=== PATIENT | female | born 1960 | race Caucasian/White ===

== ENCOUNTER 2017-04-14 21:37 | Observation (INO) | payer MEDICARE ==
[~2017-04-14] VITALS: Ht 152.4 cm; Wt 50.0 kg
[2017-04-14 21:39] VITALS: BP 112/64; PULSE 88; RESP 16; TEMP 98.4; O2SAT 100
[2017-04-14] MEDS ORDERED: LAMI200T PO (22:34)
[2017-04-14] MEDS ORDERED: ADDE20 PO (22:34)
[2017-04-14] MEDS ORDERED: LIPI20TA PO (22:34)
[2017-04-14] MEDS ORDERED: PROZ40CA PO (22:34)
[2017-04-14] MEDS ORDERED: DIAZ2TAB PO (22:34)
--- NOTE | 2017-04-14 22:35 | PD ---
HPI Chief Complaint: Medical Clearance Time Seen by Provider: 22:30 Travel History International Travel<30 days: No Contact w/Intl Traveler<30days: No Traveled to known affect area: No History of Present Illness HPI The patient is a 57 year old female who presents to the [facility] emergency department with a history of intermittently passing out for the past week. She reports that she has noticed that she was passing out because she would be texting someone and then suddenly come to realize that she was texting a grouping of letters that made no sense. The patient is reportedly from [facility]. The patient has a, located medical history including reportedly being diagnosed with a brain tumor that was biopsied positive for glioma and inoperable due to the location, history of leukemia, B-cell lymphoma , cervical cancer, chronic back pain, and a right ovarian cyst. The patient additionally reports that she had a stroke in 2008 that has caused cognitive dysfunction. She denies having any residual weakness of her extremities. The patient reports that she traveled from [facility] last night to [place]. She reports that she was trying to drive back today. She decided to come to the emergency department in [facility] when she was having difficulty driving and weaving in and out of her proper ida of traffic. The patient reports that she has not slept for more than 2 hours in the last 48 hours. Otherwise on review of systems, the patient denies having any recent fevers, cough or congestion, new or worsening neck pain, chest pain, shortness of breath , vomiting, diarrhea, urinary symptoms, or other neurologic symptoms. 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 Anxiety: Yes High Cholesterol: Yes Cerebrovascular Accident: Yes Headaches: Yes Hypertension: Yes Ulcer: Yes Past Surgical History Narrative Surgical The patient's past surgical history is significant for brain biopsy, coloposcopy , breast enhancement, bilateral wrist surgery, and a tonsillectomy. Tonsillectomy: Yes Social History Alcohol Use: Yes (rare.) Tobacco Use: Yes (rare occasional) Substance Use: No Allergies-Medications (Allergen,Severity, Reaction): Coded Allergies: No Known Allergies (Unverified , 04/14/17) Reported Meds & Prescriptions Reported Meds & Active Scripts Active Reported Aspirin 81 Mg Chew 81 Mg CHEW DAILY Lamictal (Lamotrigine) 200 Mg Tab 200 Mg PO DAILYHS Lipitor (Atorvastatin Calcium) 20 Mg Tab 20 Mg PO HS Diazepam 2 Mg Tab 2 Mg PO BID PRN Adderall (Amphetamine-Dextroamphetamine) 20 Mg Tab 20 Mg PO BID Avoid late evening doses. Space doses at least 4 to 6 hours if more than once/day dosing. Prozac (Fluoxetine HCl) 40 Mg Cap 40 Mg PO DAILY Review of Systems Except as stated in HPI: all other systems reviewed are Neg General / Constitutional: No: Fever Eyes: No: Visual changes HENT: Positive: Headaches, No: Neck Stiffness, Neck Pain Cardiovascular: Positive: Syncope, No: Chest Pain or Discomfort Respiratory: No: Shortness of Breath Gastrointestinal: Positive: Abdominal Pain (chronic reportedly related to a an ovarian cyst), No: Nausea, Vomiting, Diarrhea Genitourinary: No: Dysuria Musculoskeletal: No: Pain Skin: No Rash Neurologic: Positive: Syncope, Change in Mentation (increased difficulty focusing), No: Weakness, Focal Abnormalities, Slurred Speech, Sensory Disturbance Psychiatric: No: Depression Endocrine: No: Polydipsia Hematologic/Lymphatic: No: Easy Bruising Physical Exam Narrative General: The patient is a well-developed well-nourished female in no acute distress. Head and Neck exam: Head is normocephalic atraumatic. Eyes: EOMI, pupils are equal round and reactive to light. Nose: Midline septum with pink mucous membranes Mouth: Dentition unremarkable. Moist mucus membranes. Posterior oropharynx is not erythematous. No tonsillar hypertrophy. Uvula midline. Airway patent. Neck: No palpable lymphadenopathy. No nuchal rigidity. No thyromegaly. Cardiovascular: Regular rate and rhythm without murmurs, gallops, or rubs. Lungs: Clear to auscultation bilaterally. No wheezes, rhonchi, or rales. Abdomen: Soft, without tenderness to palpation in all 4 quadrants of the abdomen. No guarding, rebound, or rigidity. Normal bowel sounds are audible. No tenderness on palpation of McBurney's point. Negative Deleon's sign. Extremities: No clubbing, cyanosis, or edema. 2+ pulses in all 4 extremities. No calf tenderness on palpation. Back: No spinous process tenderness to palpation. No costovertebral angle tenderness to palpation. Neurologic Exam: Grossly nonfocal. Skin Exam: No rash noted. Intact skin that is warm and dry. Data Data Last Documented VS Vital Signs Date Time Temp Pulse Resp B/P (MAP) Pulse Ox O2 Delivery O2 Flow Rate FiO2 04/14/17 22:40 100 Room Air 04/14/17 22:40 82 20 87 20 87 20 04/14/17 21:39 98.4 Orders Orders Electrocardiogram (04/14/17 22:35) Complete Blood Count With Diff (04/14/17 22:35) Comprehensive Metabolic Panel (04/14/17 22:35) Creatine Kinase (Cpk) (04/14/17 22:35) Ckmb (Isoenzyme) Profile (04/14/17 22:35) Troponin I (04/14/17 22:35) B-Type Natriuretic Peptide (04/14/17 22:35) Prothrombin Time / Inr (Pt) (04/14/17 22:35) Act Partial Throm Time (Ptt) (04/14/17 22:35) Lipase (04/14/17 22:35) Urinalysis - C+S If Indicated (04/14/17 22:35) D-Dimer (04/14/17 22:35) Magnesium (Mg) (04/14/17 22:35) Thyroid Stimulating Hormone (04/14/17 22:35) Chest, Single Ap (04/14/17 22:35) Ct Brain W/O Iv Contrast(Rout) (04/14/17 22:35) Iv Access Insert/Monitor (04/14/17 22:35) Ecg Monitoring (04/14/17 22:35) Oximetry (04/14/17 22:35) Orthostatic Vital Signs (04/14/17 22:35) Sodium Chlorid 0.9% 500 Ml Inj (Ns 500 M (04/14/17 22:45) Drug Screen, Random Urine (04/14/17 22:54) Alcohol (Ethanol) (04/14/17 22:52) CKMB (04/14/17 22:52) CKMB% (04/14/17 22:52) Ct Pulmonary Angiogram (04/14/17 23:47) Admit Order (Ed Use Only) (04/15/17 00:55) Labs Laboratory Tests Test 04/14/17 22:52 04/14/17 22:53 White Blood Count 5.1 TH/MM3 Red Blood Count 4.27 MIL/MM3 Hemoglobin 13.4 GM/DL Hematocrit 39.1 % Mean Corpuscular Volume 91.5 FL Mean Corpuscular Hemoglobin 31.3 PG Mean Corpuscular Hemoglobin Concent 34.2 % Red Cell Distribution Width 12.2 % Platelet Count 176 TH/MM3 Mean Platelet Volume 7.5 FL Neutrophils (%) (Auto) 56.0 % Lymphocytes (%) (Auto) 23.8 % Monocytes (%) (Auto) 8.4 % Eosinophils (%) (Auto) 11.0 % Basophils (%) (Auto) 0.8 % Neutrophils # (Auto) 2.8 TH/MM3 Lymphocytes # (Auto) 1.2 TH/MM3 Monocytes # (Auto) 0.4 TH/MM3 Eosinophils # (Auto) 0.6 TH/MM3 Basophils # (Auto) 0.0 TH/MM3 CBC Comment DIFF FINAL Differential Comment Prothrombin Time 12.0 SEC Prothromb Time International Ratio 1.1 RATIO Activated Partial Thromboplast Time 27.3 SEC D-Dimer Quantitative (PE/DVT) 0.20 MG/L FEU Blood Urea Nitrogen 10 MG/DL Creatinine 0.67 MG/DL Random Glucose 95 MG/DL Total Protein 6.7 GM/DL Albumin 3.9 GM/DL Calcium Level 8.6 MG/DL Magnesium Level 2.2 MG/DL Alkaline Phosphatase 119 U/L Aspartate Amino Transf (AST/SGOT) 26 U/L Alanine Aminotransferase (ALT/SGPT) 31 U/L Total Bilirubin 0.3 MG/DL Sodium Level 141 MEQ/L Potassium Level 3.6 MEQ/L Chloride Level 104 MEQ/L Carbon Dioxide Level 30.1 MEQ/L Anion Gap 7 MEQ/L Estimat Glomerular Filtration Rate 90 ML/MIN Total Creatine Kinase 187 U/L Creatine Kinase MB 7.9 NG/ML Troponin I LESS THAN 0.02 NG/ML B-Type Natriuretic Peptide 8 PG/ML Lipase 115 U/L Thyroid Stimulating Hormone 3rd Gen 0.825 uIU/ML Ethyl Alcohol Level LESS THAN 3 MG/DL Urine Color YELLOW Urine Turbidity CLEAR Urine pH 7.5 Urine Specific [place] 1.022 Urine Protein TRACE mg/dL Urine Glucose (UA) NEG mg/dL Urine Ketones NEG mg/dL Urine Occult Blood NEG Urine Nitrite NEG Urine Bilirubin NEG Urine Urobilinogen 2.0 MG/DL Urine Leukocyte Esterase SMALL Urine RBC 6 /hpf Urine WBC 3 /hpf Urine Squamous Epithelial Cells <1 /hpf Urine Mucus FEW /lpf Microscopic Urinalysis Comment CULT NOT INDICATED Urine Opiates Screen NEG Urine Barbiturates Screen NEG Urine Amphetamines Screen POS Urine Benzodiazepines Screen POS Urine Cocaine Screen POS Urine Cannabinoids Screen NEG MDM Medical Decision Making Medical Screen Exam Complete: Yes Emergency Medical Condition: Yes Medical Record Reviewed: Yes Interpretation(s) Last Impressions Head CT 04/14/172234 Signed Impressions: Service Date/Time: Friday, April 14, 2017 23:17 - CONCLUSION: 1. No evidence of acute intracranial pathology. No masses are identified. 2. 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 There is no evidence of pneumonia. 2. Possible left upper lobe nodule. CT scan is recommended for further evaluation if clinically indicated. Miki Camacho MD Differential Diagnosis Progression of intracranial tumor, versus ischemic stroke, versus hemorrhagic stroke, versus increased difficulty focusing related to lack of sleep, versus cardiac arrhythmia, versus dehydration, versus electrolyte arrangements Narrative Course During the course of the patients emergency department visit, the patients history, examination, and differential diagnosis were reviewed with the patient. The patient was placed on a gambling monitor with oximetry and frequent blood pressure monitoring. The patient had IV access obtained and blood work sent for analysis. The patient had an ECG done on arrival. The patient's ECG shows a sinus rhythm heart rate of 69, QRS duration is 97 ms, QTC 436 ms, no acute ST segment elevation or depression, T waves are inverted in V1. The patient's records from [place] will be obtained due to her complicated medical history. The patient reports that she normally goes to [facility] for her healthcare. The patient was initially provided normal saline a 500 mL bolus 1. The patients laboratory studies were reviewed and remarkable for a white count of 5.1, hemoglobin 13.4, platelets 176 with 8.4 monocytes, eosinophils 11, CMP is remarkable for an alkaline phosphatase of 119, CPK 187, troponin I less than 0.02, BNP 8, lipase 115, TSH 0.825, PT 12, PTT 27.3, alcohol level less than 3. Urine drug screen is positive for benzodiazepine, amphetamines, cocaine. Urinalysis shows small leukocyte esterase, 6 RBCs otherwise unremarkable. Radiology studies were reviewed and remarkable for a chest x-ray that shows no evidence of pneumonia, possible left upper lobe nodule, CT scan recommended for further evaluation, CT scan of the brain shows no evidence of acute intracranial pathology. No masses are identified. 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 CTA to rule out pulmonary embolism shows no evidence of pulmonary embolism. The patient will be admitted to the hospital for syncope. The patients results were discussed with the patient, including the plan of care. I explained that further testing and/ or monitoring is indicated based on the patients history, examination, and/ or laboratory findings. Therefore, I recommended admission for additional evaluation. The patient expressed understanding and was agreeable with this plan. The patient was admitted to the hospital in stable condition and sent to a bed under the care of the [facility] service. Physician Communication Physician Communication The patient's case including history, pertinent physical examination findings, and laboratory studies were discussed with Dr. Arciniega. It was agreed that the patient would be admitted to the [facility] service. Diagnosis Primary Impression: Syncope Qualified Codes: R55 - Syncope and collapse Admitting Information Admitting Physician Requests: Annie Mckenzie MD Apr 14, 2017 22:35
[2017-04-14 22:40] VITALS: BP_SYST 106; BP_SYST 113; BP_SYST 114; BP_DIAS 53; BP_DIAS 58; BP_DIAS 65; RESP 20; O2SAT 100
[2017-04-14] MEDS ORDERED: SODIUM CHLORID 0.9% 500 ML INJ 500 ML IV ONE (22:45)
[2017-04-14 23:12] LABS: AUTOMATED NEUTROPHIL # 2.8 TH/MM3 (1.8-7.7); BASOPHIL % 0.8 % (0.0-2.0); EOSINOPHIL # 0.6 TH/MM3 (0-0.4); HEMATOCRIT 39.1 % (35.0-46.0); HEMO FLAGS DIFF FINAL; LYMPH % 23.8 % (9.0-44.0); LYMPHOCYTE # 1.2 TH/MM3 (1.0-4.8); MEAN CELL VOLUME 91.5 FL (80.0-100.0); MEAN CORPUSCULAR HEMOGLOBIN 31.3 PG (27.0-34.0); MEAN CORPUSCULAR HGB CONC 34.2 % (32.0-36.0); MONO % 8.4 % (0.0-8.0); PLATELET COUNT 176 TH/MM3 (150-450); RED BLOOD COUNT 4.27 MIL/MM3 (4.00-5.30); RED CELL DISTRIBUTION WIDTH 12.2 % (11.6-17.2); WHITE BLOOD COUNT 5.1 TH/MM3 (4.0-11.0)
[2017-04-14 23:18] LABS: BLOOD, URINE NEG (NEG); COMMENT (UR) CULT NOT INDICATED; CULTURE IF INDICATED CULT NOT INDICATED; GLUCOSE,URINE NEG (NEG); KETONE, URINE NEG (NEG); MUCUS URINE FEW /lpf (OCC); NITRITE,URINE NEG (NEG); PH, URINE 7.5 (5.0-8.5); SQUAMOUS EPITHELIAL CELL URINE <1 /hpf (0-5); URINE COLOR YELLOW (YELLW/STRAW)
[2017-04-14] MEDS ORDERED: ASPI-516 CHEW (23:18)
--- NOTE | 2017-04-14 23:25 | RADRPT ---
EXAM DATE/TIME: 04/14/2017 23:01 [facility] COMPARISON: No previous studies available for comparison. INDICATIONS : Chest pain, short of breath. MEDICAL HISTORY : None. SURGICAL HISTORY : None. ENCOUNTER: Initial ACUITY: 1 day PAIN SCORE: 0/10 LOCATION: Bilateral chest FINDINGS: The cardiac silhouette is normal in transverse diameter. There is no evidence of pneumonia. The aort ic knob is prominent with tortuosity of the descending thoracic aorta. There is a possible 10 mm nodu le in the left upper lobe. CT scan is recommended for further evaluation if clinically indicated. CONCLUSION: 1. There is no evidence of pneumonia. 2. Possible left upper lobe nodule. CT scan is recommended for further evaluation if clinically indic ated. Miki Camacho MD on April 14, 2017 at 23:23 Board Certified Radiologist. This report was verified electronically.
[2017-04-14 23:27] LABS: APTT (PATIENT) 27.3 SEC (24.3-30.1); INTERNATIONAL NORMALIZED RATIO 1.1 RATIO
[2017-04-14 23:33] LABS: ALT (GPT) 31 U/L (10-53); ANION GAP 7 MEQ/L (5-15); AST (GOT) 26 U/L (15-37); BICARBONATE 30.1 MEQ/L (21.0-32.0); BLOOD UREA NITROGEN 10 MG/DL (7-18); CHLORIDE 104 MEQ/L (98-107); GLOMERULAR FILTRATION RATE 90 ML/MIN (>89); MAGNESIUM 2.2 MG/DL (1.5-2.5); POTASSIUM 3.6 MEQ/L (3.5-5.1); SODIUM (NA) 141 MEQ/L (136-145)
[2017-04-14 23:35] LABS: ALCOHOL LESS THAN 3 MG/DL (0-5)
[2017-04-14 23:41] LABS: ALKALINE PHOSPHATASE 119 U/L (45-117); CREATINE KINASE 187 U/L (26-192); TOTAL BILIRUBIN ADULT 0.3 MG/DL (0.2-1.0)
[2017-04-14 23:54] LABS: CKMB 7.9 NG/ML (0.5-3.6)
--- NOTE | 2017-04-14 23:58 | RADRPT ---
EXAM DATE/TIME: 04/14/2017 23:17 [facility] COMPARISON: No previous studies available for comparison. INDICATIONS : Frontal headache. Syncope. RADIATION DOSE: 26.67 CTDIvol (mGy) MEDICAL HISTORY : Stroke. Lymphoma. Temporal lobe tumor. Cervical cancer. SURGICAL HISTORY : Temporal lobe biopsy. ENCOUNTER: Initial ACUITY: 1 day PAIN SCALE: 7/10 LOCATION: cranial TECHNIQUE: Multiple contiguous axial images were obtained of the head. Using automated exposure control and adj ustment of the mA and/or kV according to patient size, radiation dose was kept as low as reasonably a chievable to obtain optimal diagnostic quality images. DICOM format image data is available electro nically for review and comparison. FINDINGS: CEREBRUM: The ventricles are normal for age. No evidence of midline shift, mass lesion, hemorrhage or acute in farction. No extra-axial fluid collections are seen. POSTERIOR FOSSA: The cerebellum and brainstem are intact. The 4th ventricle is midline. The cerebellopontine angle i s unremarkable. Old right PICA is present EXTRACRANIAL: The visualized portion of the orbits is intact. SKULL: The calvaria is intact. No evidence of skull fracture. There is previous left temporal craniotomy CONCLUSION: 1. No evidence of acute intracranial pathology. No masses are identified. 2. 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 This report was verified electronically.
[2017-04-15] VITALS (8 sets, daily range): BP systolic 93–120; BP diastolic 56–63; PULSE 62–96; RESP 16–19; TEMP 97.4–98.9; O2SAT 98–99
[2017-04-15] MEDS ORDERED: NALOXONE HCL 0.4 MG/ML AMP IV PUSH PRN ×2 (01:30→14:00)
[2017-04-15] MEDS ORDERED: SODIUM CHLORIDE 0.9% FLUSH 10 ML FLUSH IV FLUSH PRN (01:30)
[2017-04-15] MEDS ORDERED: IOHEXOL 350 MG/ML 10 ML VIAL (for RAD DIAG) IVCONTRAST ONE (01:44)
--- NOTE | 2017-04-15 01:59 | RADRPT ---
EXAM DATE/TIME: 04/15/2017 00:37 [facility] COMPARISON: No previous studies available for comparison. INDICATIONS : Syncopal episodes past week. IV CONTRAST: 60 cc Omnipaque 350 (iohexol) IV RADIATION DOSE: 21.13 CTDIvol (mGy) MEDICAL HISTORY : Cerebrovascular disease. Hypertension. SURGICAL HISTORY : None. ENCOUNTER: Initial ACUITY: 1 week PAIN SCALE: 0/10 LOCATION: chest TECHNIQUE: Volumetric scanning of the chest was performed using a pulmonary embolism protocol MIP images were re constructed. Using automated exposure control and adjustment of the mA and/or kV according to patien t size, radiation dose was kept as low as reasonably achievable to obtain optimal diagnostic quality images. DICOM format image data is available electronically for review and comparison. Follow-up recommendations for detected pulmonary nodules are based at a minimum on nodule size and pa tient risk factors according to Fleischner Society Guidelines. FINDINGS: PULMONARY ARTERIES: No filling defects are seen in the pulmonary arteries through the segmental level. LUNGS: There is no consolidation or pneumothorax . No concerning pulmonary nodule is visualized. PLEURAE: There is no pleural thickening or pleural effusion. MEDIASTINUM: There is good visualization of the great vessels of the middle mediastinum. No evidence of mediastin al or hilar adenopathy/mass. MUSCULOSKELETAL: Within normal limits for patient age. MISCELLANEOUS: The visualized upper abdominal organs demonstrate no acute abnormality. CONCLUSION: 1. No evidence of pulmonary embolism. Miki Camacho MD on April 15, 2017 at 1:55 Board Certified Radiologist. This report was verified electronically.
[2017-04-15 05:29] LABS: CREATINE KINASE 167 U/L (26-192)
[2017-04-15] MEDS ORDERED: SODIUM CHLORIDE 0.9% FLUSH 10 ML FLUSH IV FLUSH SCH (09:00)
--- NOTE | 2017-04-15 09:30 | EKG ---
Date Performed: 04/15/2017 Time Performed: 04:46:20 PTAGE: 57 years EKG: Sinus rhythm NORMAL ECG NO PREVIOUS TRACING DOCTOR: Fred Ireland Interpretating Date/Time 04/15/2017 09:29:56
--- NOTE | 2017-04-15 09:37 | EKG ---
Date Performed: 04/14/2017 Time Performed: 23:10:44 PTAGE: 57 years EKG: Sinus rhythm NORMAL ECG NO PREVIOUS TRACING DOCTOR: Fred Ireland Interpretating Date/Time 04/15/2017 09:34:06
--- NOTE | 2017-04-15 09:49 | RADRPT ---
EXAM DATE/TIME: 04/15/2017 08:08 [facility] COMPARISON: No previous studies available for comparison. INDICATIONS : Syncope. MEDICAL HISTORY : Myocardial infarction. Hypercholesterolemia. CVA. Hypertension. Ulcer. Ovarian cyst. B cell lymphom a. SURGICAL HISTORY : Tonsillectomy. D&C. bilateral wrist surgery. Brain tumor BX. Breast augmention. ENCOUNTER: Initial ACUITY: 2 days PAIN SCORE: 6/10 LOCATION: Bilateral neck PEAK SYSTOLIC VELOCITIES (cm/sec): ICA/CCA RATIO: Right: 0.8 Left: 0.9 ICA: Right: 71 Left: 72 CCA: Right: 84 Left: 85 ECA: Right: 44 Left: 46 VERTEBRAL: Right: 43 antegrade Left: 50 antegrade Elevated flow velocities and ICA/CCA ratios have been found to correlate with increased degrees of vessel stenosis, calculated as percentage of diameter relative to a normal segment of distal ICA/CCA FINDINGS: RIGHT CAROTID: No significant stenosis is visualized. The waveforms are within normal limits. LEFT CAROTID: No significant stenosis is visualized. The waveforms are within normal limits. VERTEBRAL ARTERIES: Antegrade flow is seen in both vertebral arteries. MISCELLANEOUS: None. CONCLUSION: 1. No atherosclerotic disease or stenosis is present within either internal coronary artery. 2. There is antegrade flow within both vertebral arteries. Trey Daley MD on April 15, 2017 at 9:46 Board Certified Radiologist. This report was verified electronically.
[2017-04-15 13:38] LABS: CREATINE KINASE 119 U/L (26-192)
[2017-04-15] MEDS ORDERED: DIAZEPAM 2 MG TAB PO PRN (14:00)
[2017-04-15] MEDS ORDERED: BISACODYL 10 MG SUPP RECTAL PRN (14:00)
[2017-04-15] MEDS ORDERED: LACTULOSE SYRUP 20 GM/30 ML CUP PO PRN (14:00)
[2017-04-15] MEDS ORDERED: MAGNESIUM HYDROXIDE SUSP 30 ML CUP PO PRN (14:00)
[2017-04-15] MEDS ORDERED: ONDANSETRON HCL 4 MG/2 ML VIAL IVP PRN (14:00)
[2017-04-15] MEDS ORDERED: SENNOSIDES 8.6 MG TAB PO PRN (14:00)
[2017-04-15] MEDS ORDERED: ACETAMINOPHEN 325 MG TAB PO PRN ×2 (14:00)
--- NOTE | 2017-04-15 14:40 | HHI.HP ---
HPI Service [facility] Hospitalists Primary Care Physician No Primary Care Physician Admission Diagnosis syncope Diagnoses: Chief Complaint: Syncope Travel History International Travel<30 Days: No Contact w/Intl Traveler <30 Da: No Traveled to Known Affected Are: No History of Present Illness Written by Kendra Boland, acting as scribe for Dr. Leiva on 04/15/17 at 14: 40. This note was transcribed by scribe Kendra Boland. I, Dr. Warren Leiva personally performed the history, physical exam, and medical decision making; and confirmed the accuracy of the information in the transcribed note. Authenticated by Dr. Warren Leiva on 04/15/17 at 14:42. 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 Patient is a poor historian frequently going off on tangents and must be constantly redirected. Patients boyfriend is at the bedside and endorses the patient passing out several times recently. He states she's been having hallucinations. Patient states she has been having problems with addition and subtraction. She also states multiple episodes where she will be texting someone and then realize she' s only been typing in nonsensical letters. Patient lives in [facility] and reports she was attempting to drive back home last night from [place] when she was unable to maintain control of her vehicle prompting her to come into the ED. She reports poor sleep over the past several days. She denies any new onset weakness. She denies any recent illness. She takes Diazepam for anxiety. She denies any alcohol consumption yesterday. She denies any drug use but her tox screen was positive for amphetamines, benzodiazepines and cocaine. She is adamant that something was wrong with her and states "there is something getting worse". Outside of her room, boyfriend admitted that she has been using cocaine regularly. In the ED, CT of the head shows no evidence of acute intracranial pathology. Review of Systems Except as stated in HPI: all other systems reviewed are Neg Past Family Social History Past Medical History Glioma diagnosed by brain biopsy but inoperable per patient report Leukemia B cell lymphoma hx of CVA 2008 with "residual cognitive dysfunction" Cervical cancer Right ovarian cyst HLD HTN Anxiety Chronic back pain Past Surgical History Wrist surgery Breast augmentation Brain biopsy Tonsillectomy Reported Medications Aspirin 81 Mg Chew 81 Mg CHEW DAILY Lamictal (Lamotrigine) 200 Mg Tab 200 Mg PO DAILYHS Lipitor (Atorvastatin Calcium) 20 Mg Tab 20 Mg PO HS Diazepam 2 Mg Tab 2 Mg PO BID PRN Adderall (Amphetamine-Dextroamphetamine) 20 Mg Tab 20 Mg PO BID Avoid late evening doses. Space doses at least 4 to 6 hours if more than once/day dosing. Prozac (Fluoxetine HCl) 40 Mg Cap 40 Mg PO DAILY Allergies: Coded Allergies: No Known Allergies (Unverified , 04/14/17) Active Ordered Medications Current Medications Medications (Trade) Dose Ordered Sig/Marlon Route Start Time Stop Time Status Last Admin (NS Flush) 2 ml UNSCH PRN IV FLUSH 04/15/17 01:30 (NS Flush) 2 ml BID IV FLUSH 04/15/17 09:00 04/15/17 09:40 (Narcan Inj) 0.4 mg UNSCH PRN IV PUSH 04/15/17 01:30 (Pneumovax-23 Inj) 25 mcg ONCE ONCE IM 04/16/17 09:00 04/16/17 09:01 (Flu (Quadrivalent) Vaccine Inj) 0.5 ml ONCE ONCE IM 04/16/17 09:00 04/16/17 09:01 (Tylenol) 650 mg Q4H PRN PO 04/15/17 14:00 UNV (Zofran Inj) 4 mg Q6H PRN IVP 04/15/17 14:00 UNV (Tylenol) 650 mg Q6H PRN PO 04/15/17 14:00 UNV (Narcan Inj) 0.4 mg UNSCH PRN IV PUSH 04/15/17 14:00 UNV (Tina-Colace) 1 tab BID PO 04/15/17 21:00 UNV (Milk Of Magnesia Liq) 30 ml Q12H PRN PO 04/15/17 14:00 UNV (Senokot) 17.2 mg Q12H PRN PO 04/15/17 14:00 UNV (Dulcolax Supp) 10 mg DAILY PRN RECTAL 04/15/17 14:00 UNV (Lactulose Liq) 30 ml DAILY PRN PO 04/15/17 14:00 UNV (Adderall) 20 mg BID PO 04/15/17 21:00 UNV (Aspirin Chew) 81 mg DAILY CHEW 04/16/17 09:00 UNV (Lipitor) 20 mg HS PO 04/15/17 21:00 UNV (Valium) 2 mg BID PRN PO 04/15/17 14:00 UNV (LaMICtal) 200 mg HS PO 04/15/17 21:00 UNV Non-Formulary Medication 40 mg DAILY PO 04/16/17 09:00 UNV Family History Father, age 55, CAD Lymphoma Social History Patient denies any tobacco use. She reports occasional alcohol consumption. She denies drinking any EtOH yesterday. Patient denies any illicit drug use but her tox screen was positive for cocaine in the ED. Physical Exam Vital Signs Vital Signs Date Time Temp Pulse Resp B/P (MAP) Pulse Ox O2 Delivery O2 Flow Rate FiO2 04/15/17 11:21 98.6 70 16 93/56 (68) 99 04/15/17 07:53 97.4 63 16 107/57 (74) 98 04/15/17 04:00 70 04/15/17 02:57 98.9 96 19 112/63 (79) 99 04/14/17 22:40 100 Room Air 04/14/17 22:40 82 20 106/53 (70) 87 20 113/58 (76) 87 20 114/65 (81) 04/14/17 21:39 98.4 88 16 112/64 (80) 100 Physical Exam GENERAL: This is a well-nourished, well-developed patient, in no apparent distress. Awake and alert. Boyfriend is at the bedside. SKIN: No rashes, ecchymoses or lesions. Cool and dry. HEAD: Atraumatic. Normocephalic. No temporal or scalp tenderness. EYES: Pupils equal round and reactive. Extraocular motions intact. No scleral icterus. No injection or drainage. ENT: Nose without bleeding or purulent drainage. Throat without erythema, tonsillar hypertrophy or exudate. Uvula midline. Airway patent. NECK: Trachea midline. No lymphadenopathy. Supple, nontender, no meningeal signs. CARDIOVASCULAR: Regular rate and rhythm without murmurs, gallops, or rubs. RESPIRATORY: Clear to auscultation. Breath sounds equal bilaterally. No wheezes , rales, or rhonchi. GASTROINTESTINAL: Abdomen soft, non-tender, nondistended. No hepato-splenomegaly , or palpable masses. No guarding. MUSCULOSKELETAL: Extremities without clubbing, cyanosis, or edema. No joint tenderness, effusion, or edema noted. No calf tenderness. NEUROLOGICAL: Awake and alert. Cranial nerves II through XII intact. Motor and sensory grossly within normal limits. Five out of 5 muscle strength in all muscle groups. Pressured manic speech. Laboratory Laboratory Tests Test 04/14/17 22:52 04/14/17 22:53 04/15/17 04:40 04/15/17 12:25 White Blood Count 5.1 Red Blood Count 4.27 Hemoglobin 13.4 Hematocrit 39.1 Mean Corpuscular Volume 91.5 Mean Corpuscular Hemoglobin 31.3 Mean Corpuscular Hemoglobin Concent 34.2 Red Cell Distribution Width 12.2 Platelet Count 176 Mean Platelet Volume 7.5 Neutrophils (%) (Auto) 56.0 Lymphocytes (%) (Auto) 23.8 Monocytes (%) (Auto) 8.4 Eosinophils (%) (Auto) 11.0 Basophils (%) (Auto) 0.8 Neutrophils # (Auto) 2.8 Lymphocytes # (Auto) 1.2 Monocytes # (Auto) 0.4 Eosinophils # (Auto) 0.6 Basophils # (Auto) 0.0 CBC Comment DIFF FINAL Differential Comment Prothrombin Time 12.0 Prothromb Time International Ratio 1.1 Activated Partial Thromboplast Time 27.3 D-Dimer Quantitative (PE/DVT) 0.20 Blood Urea Nitrogen 10 Creatinine 0.67 Random Glucose 95 Total Protein 6.7 Albumin 3.9 Calcium Level 8.6 Magnesium Level 2.2 Alkaline Phosphatase 119 Aspartate Amino Transf (AST/SGOT) 26 Alanine Aminotransferase (ALT/SGPT) 31 Total Bilirubin 0.3 Sodium Level 141 Potassium Level 3.6 Chloride Level 104 Carbon Dioxide Level 30.1 Anion Gap 7 Estimat Glomerular Filtration Rate 90 Total Creatine Kinase 187 167 119 Creatine Kinase MB 7.9 Troponin I LESS THAN 0.02 LESS THAN 0.02 LESS THAN 0.02 B-Type Natriuretic Peptide 8 Lipase 115 Thyroid Stimulating Hormone 3rd Gen 0.825 Ethyl Alcohol Level LESS THAN 3 Urine Color YELLOW Urine Turbidity CLEAR Urine pH 7.5 Urine Specific [place] 1.022 Urine Protein TRACE Urine Glucose (UA) NEG Urine Ketones NEG Urine Occult Blood NEG Urine Nitrite NEG Urine Bilirubin NEG Urine Urobilinogen 2.0 Urine Leukocyte Esterase SMALL Urine RBC 6 Urine WBC 3 Urine Squamous Epithelial Cells <1 Urine Mucus FEW Microscopic Urinalysis Comment CULT NOT INDICATED Urine Opiates Screen NEG Urine Barbiturates Screen NEG Urine Amphetamines Screen POS Urine Benzodiazepines Screen POS Urine Cocaine Screen POS Urine Cannabinoids Screen NEG Result Diagram: 04/14/17225104/14/[id number] Imaging Last Impressions Carotid Artery Ultrasound 04/15/17 0000 Signed Impressions: Service Date/Time: Saturday, April 15, 2017 08:08 - CONCLUSION: 1. No atherosclerotic disease or stenosis is present within either internal coronary artery. 2. There is antegrade flow within both vertebral arteries. Trey Daley MD CT Angiography 04/14/[id number] Signed Impressions: Service Date/Time: Saturday, April 15, 2017 00:37 - CONCLUSION: 1. No evidence of pulmonary embolism. Miki Camacho MD Head CT 04/14/[id number] Signed Impressions: Service Date/Time: Friday, April 14, 2017 23:17 - CONCLUSION: 1. No evidence of acute intracranial pathology. No masses are identified. 2. 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 There is no evidence of pneumonia. 2. Possible left upper lobe nodule. CT scan is recommended for further evaluation if clinically indicated. Miki Camacho MD Capmadhavi VTE Risk Assessment Rachaeli VTE Risk Assessment: No/Low Risk (score <= 1) Caprini Risk Assessment Model Point Value = 1 Point Value = 2 Point Value = 3 Point Value = 5 Age 41-60 Minor surgery BMI > 25 kg/m2 Swollen legs Varicose veins or History of unexplained or recurrent spontaneous Oral contraceptives or hormone replacement Sepsis (< 1 month) Serious lung disease, including pneumonia (< 1 month) Abnormal pulmonary function Acute myocardial infarction Congestive heart failure (< 1 month) History of inflammatory bowel disease Medical patient at bed rest Age 61-74 Arthroscopic surgery Major open surgery (> 45 min) Laparoscopic surgery (> 45 min) Malignancy Confined to bed (> 72 hours) Immobilizing plaster cast Central venous access Age >= 75 History of VTE Family history of VTE Factor V Leiden Prothrombin [id number] Lupus anticoagulant Anticardiolipin antibodies Elevated serum homocysteine Heparin-induced thrombocytopenia Other congenital or acquired thrombophilia Stroke (< 1 month) Elective arthroplasty Hip, pelvis, or leg fracture Acute spinal cord injury (< 1 month) Prophylaxis Regimen Total Risk Factor Score Risk Level Prophylaxis Regimen 0-1 Low Early ambulation 2 Moderate Order ONE of the following: *Sequential Compression Device (SCD) *Heparin 5000 units SQ BID 3-4 Higher Order ONE of the following medications: *Heparin 5000 units SQ TID *Enoxaparin/Lovenox 40 mg SQ daily (WT < 150 kg, CrCl > 30 mL/min) *Enoxaparin/Lovenox 30 mg SQ daily (WT < 150 kg, CrCl > 10-29 mL/min) *Enoxaparin/Lovenox 30 mg SQ BID (WT < 150 kg, CrCl > 30 mL/min) AND/OR *Sequential Compression Device (SCD) 5 or more Highest Order ONE of the following medications: *Heparin 5000 units SQ TID (Preferred with Epidurals) *Enoxaparin/Lovenox 40 mg SQ daily (WT < 150 kg, CrCl > 30 mL/min) *Enoxaparin/Lovenox 30 mg SQ daily (WT < 150 kg, CrCl > 10-29 mL/min) *Enoxaparin/Lovenox 30 mg SQ BID (WT < 150 kg, CrCl > 30 mL/min) AND *Sequential Compression Device (SCD) Assessment and Plan Assessment and Plan 57yr old female with a PMHX of brain tumor with biopsy positive for glioma (inoperable ppr), leukemia, B cell lymphoma, hx of CVA with residual cognitive dysfunction, cervical cancer, chronic back pain, right ovarian cyst, HLD, HTN and anxiety who presents to [facility] with complaints of intermittent syncope for the past week. Syncope Polysubstance abuse hx of CVA - CT head personally reviewed showing no acute intracranial process - suspect multifactorial in patient with sleep deprivation, medication side effect and cocaine use - EEG ordered/pending - Echocardiogram ordered/pending - Carotid US shows no atherosclerotic disease or stenosis - continuous cardiac monitoring - resume home dose of aspirin daily - seizure precautions - neuro checks q4h - PT eval/tx S/p Brain biopsy positive for glioma, inoperable per patient report - continue patient on home dose of Lamictal - Seizure precautions Other chronic medical condition include hx leukemia, B cell lymphoma, HTN, anxiety and HLD; all stable at present; resume home medications DVT prophylaxis - bilateral SCD/HENRIETTA hose Discussed Condition With Patient, boyfriend, nursing staff Discharge patient to home if echocardiogram and EEG unremarkable Condition on discharge: Improved Regular Diet as tolerated Ad Jamilah activity no driving Rx written: None Follow-up with primary care physician Kendra Boland Apr 15, 2017 14:40 Warren Leiva MD Apr 15, 2017 14:42
--- NOTE | 2017-04-15 15:57 | MG ---
cc: ANAND JAIN M.D. Lab No: [id number] Date: 04/15/2017 Age: Sex: F Race: TECHNIQUE 17-channel EEG. DESCRIPTION The background rhythm reveals a symmetrical alpha rhythm, frequency is 8-10 Hz, amplitude 20-30 microvolts. There are no lateralizing features seen. There are no epileptiform discharges. There is some muscle artifact present. Hyperventilation was not done. Photic results in a normal driving response. There does appear to be sleep and there are vertex sharp waves with sleep spindles but no epileptiform discharges. INTERPRETATION Normal EEG. MD ALEKSANDAR Skinner/MANUELAL /3:48 PM /3:59 PM
--- NOTE | 2017-04-15 16:25 | HHI.DCPOC ---
Discharge Care Plan Diagnosis: (1) Cocaine abuse (2) Polysubstance abuse (3) Syncope Goals to Promote Your Health * To prevent worsening of your condition and complications * To maintain your health at the optimal level Directions to Meet Your Goals Please abstain from all illicit drug use. Take your medications as prescribed Follow your dietary instruction Follow activity as directed Keep your appointments as scheduled Take your immunizations and boosters as scheduled If your symptoms worsen call your PCP, if no PCP go to Urgent Care Center or Emergency Room Smoking is Dangerous to Your Health. Avoid second hand smoke Call the 24-hour hour crisis hotline for domestic abuse at Kendra Boland Apr 15, 2017 16:25
--- NOTE | 2017-04-15 17:49 | ECHRPT ---
Indication: syncope CONCLUSIONS Normal left ventricular size. Wall thickness is normal. The left ventricular systolic function is normal with an estimated ejection fraction of 55%. Trace mitral valve regurgitation. Trace aortic valve regurgitation. There is trace tricuspid valve regurgitation. There is estimated mild pulmonary hypertension present (41 mmHg). BP: 112 / 63 HR: 96 Rhythm: MEASUREMENTS (Male / Female) Normal Values Technical Quality: 2D ECHO LV Diastolic Diameter PLAX 4.2 cm 4.2 - 5.9 / 3.9 - 5.3 cm LV Systolic Diameter PLAX 3.0 cm IVS Diastolic Thickness 0.8 cm 0.6 - 1.0 / 0.6 - 0.9 cm LVPW Diastolic Thickness 0.5 cm 0.6 - 1.0 / 0.6 - 0.9 cm LV Relative Wall Thickness 0.3 RV Internal Dim ED PLAX 2.1 cm LA Systolic Diameter LX 3.3 cm 3.0 - 4.0 / 2.7 - 3.8 cm DOPPLER AV Peak Velocity 182.0 cm/s AV Peak Gradient 13.2 mmHg LVOT Peak Velocity 105.0 cm/s LVOT Peak Gradient 4.4 mmHg MR Peak Velocity 444.0 cm/s MR Peak Gradient 78.9 mmHg Mitral E Point Velocity 105.0 cm/s Mitral A Point Velocity 77.5 cm/s Mitral E to A Ratio 1.4 TR Peak Velocity 299.0 cm/s TR Peak Gradient 35.8 mmHg Right Atrial Pressure 5.0 mmHg Pulmonary Artery Systolic Pressu 40.8 mmHg Right Ventricular Systolic Press 40.8 mmHg FINDINGS LEFT VENTRICLE Normal left ventricular size. Wall thickness is normal. The left ventricular systolic function is normal with an estimated ejection fraction of 55%. RIGHT VENTRICLE Normal right ventricular size and systolic function. LEFT ATRIUM The left atrial size is normal. RIGHT ATRIUM The right atrial size is normal. ATRIAL SEPTUM Normal atrial septal thickness without atrial level shunting by limited color doppler interrogation. AORTA The aortic root and proximal ascending aorta are normal in size on limited imaging. MITRAL VALVE Trace mitral valve regurgitation. AORTIC VALVE Trace aortic valve regurgitation. TRICUSPID VALVE There is trace tricuspid valve regurgitation. There is estimated mild pulmonary hypertension present (41 mmHg). PULMONARY VALVE No pulmonary valve regurgitation or stenosis. VESSELS The inferior vena cava is normal in size. PERICARDIUM No pericardial effusion. Diana Gonzalez MD, FACC (Electronically Signed) Final Date:15 April 2017 17:48
--- NOTE | 2017-04-15 18:21 | EKG ---
Date Performed: 04/15/2017 Time Performed: 11:01:47 PTAGE: 57 years EKG: Sinus rhythm NORMAL ECG No significant change from prior electrocardiogram. PREVIOUS TRACING : 04/15/2017 04.46 DOCTOR: Edmar Coreas Interpretating Date/Time 04/15/2017 18:21:24
[2017-04-15] MEDS ORDERED: lamoTRIgine 100 MG TAB PO SCH (21:00)
[2017-04-15] MEDS ORDERED: ATORVASTATIN 20 MG TAB PO SCH (21:00)
[2017-04-15] MEDS ORDERED: DOCUSATE SODIUM 50 MG/SENNA 8.6 MG TAB PO SCH (21:00)
[2017-04-15] MEDS ORDERED: DEXTROAMPHETAMINE/AMPHETAMINE 20 MG TAB PO SCH (21:00)
[2017-04-16] MEDS ORDERED: INFLUENZA VIRUS VACCINE (QUADRIVALENT) 0.5 ML SYR IM ONE (09:00)
[2017-04-16] MEDS ORDERED: FLUoxetine HCL 20 MG CAP PO SCH (09:00)
[2017-04-16] MEDS ORDERED: PNEUMOCOCCAL POLYVALENT INJ 25 MCG/0.5 ML SYR IM ONE (09:00)
[2017-04-16] MEDS ORDERED: ASPIRIN 81 MG CHEW TAB CHEW SCH (09:00)
== END 2017-04-15 19:09 | disposition home or self-care (01) ==
LOC: NEPE 21:37 → NEDA 04-15 00:57 → NEPFCDU 04-15 02:33
PROVIDERS: ADMIT Internal Medicine; ATTEND Internal Medicine
DX: R55 Syncope and collapse (principal); Z85.72 Personal history of non-Hodgkin lymphomas; Z85.6 Personal history of leukemia; Z85.41 Personal history of malignant neoplasm of cervix uteri; M54.9 Dorsalgia, unspecified; N83.201 Unspecified ovarian cyst, right side; G89.29 Other chronic pain; Z86.73 Personal history of transient ischemic attack (TIA), and cerebral infarction without residual deficits; E78.00 Pure hypercholesterolemia, unspecified; F41.9 Anxiety disorder, unspecified; I10 Essential (primary) hypertension; R07.9 Chest pain, unspecified; R51 Headache; Z79.899 Other long term (current) drug therapy; R44.3 Hallucinations, unspecified; Z85.841 Personal history of malignant neoplasm of brain; F19.10 Other psychoactive substance abuse, uncomplicated; Z72.820 Sleep deprivation; F14.10 Cocaine abuse, uncomplicated; I25.2 Old myocardial infarction
CPT/HCPCS: 70450; 71010; 71275; 80053; 80307; 81001; 82550; 82552; 83690; 83735; 83880; 84443; 84484; 85025; 85379; 85610; 85730; 93005; 93306; 93880; 95819; 96360; 96361; 97161; 99285; G0378; G8987; G8988; G8989; J7040; Q9967